=== PATIENT | female | born 1955 | race Caucasian/White ===

== ENCOUNTER 2017-09-03 11:58 | Day surgery (SDC) | payer OTHER ==
[~2017-09-03 11:58] MED LIST: CEFAZOLIN 2 GM/50 ML (PMX) 50 ML IVPB; SOD CHLORIDE 0.9% 1,000 ML IV
[2017-09-03] MEDS ORDERED: BUPIVACAINE 0.25% (MPF) 30 ML INJ (16:50)
[2017-09-03] MEDS ORDERED: PROPOFOL 20 ML (17:13)
[2017-09-03] MEDS ORDERED: CEFAZOLIN 1 GM INJ (17:13)
[2017-09-03] MEDS ORDERED: FENTAnyl 50 MCG/ML VIAL (17:14)
[2017-09-03] MEDS: LIDOCAINE 2% (MDV) 20 ML INJ (17:23)
[2017-09-03] MEDS: BUPIVACAINE 0.5% (SDV) 30 ML INJ (17:23)
[2017-09-03] MEDS ORDERED: HYDROCODONE/APAP (5/325) TAB PO (18:00)
== END 2017-09-03 18:45 | disposition home or self-care (01) ==
LOC: SDS 11:58
DX: L72.0 Epidermal cyst (principal); E11.9 Type 2 diabetes mellitus without complications; I10 Essential (primary) hypertension; E78.5 Hyperlipidemia, unspecified
CPT/HCPCS: 14020; 82962; 88307